=== PATIENT | female | born 1985 | race Caucasian/White ===

== ENCOUNTER 2025-09-05 11:13 | Emergency (ER) | payer OTHER, SELFPAY ==
[2025-09-05 11:15] VITALS: BP 122/80; PULSE 87; RESP 18; TEMP 37.1; O2SAT 94; BMI 47.3
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
--- OUTSIDE RECORDS SUMMARY | 2025-09-05 11:50 | XMS_ITS | Clinical Summary ---
Author Organization [facility] Address [address] [place] [id number] Care Team Providers [employer] Driver Name Role Phone Ning Johns MD Unavailable [phone] Luz Marina Reynolds MD Primary Care Provider Walter Martínez MD Unavailable [phone] Eunice Mccarthy Unavailable [phone] Unavailable Allergies Active Allergy Reactions Criticality Noted Date Comments Azithromycin Rash Low 11/20/2012 Also on sulfa; suspect the sulfa is the most likely culprit Ciprofloxacin Other - Describe In Comment Field 09/08/2024 thoracic aortic aneurysm Sulfa (Sulfonamide Antibiotics) Rash Low 11/20/2012 Was also on zithromax Vancomycin Rash 01/13/2025 Rash upon vanco OR Ancef administration prior to sx; however, no reaction to Ancef when administered post op, so proceed with caution next vanco admin... Medications aspirin chewable 81 mg chewable tablet Chew 81 mg by mouth once daily. Active ascorbic acid (vitamin C) (Vitamin C) 500 mg tablet Take 500 mg by mouth once daily. Active acetaminophen 500 mg tabletIndications :S/P pulmonary valve replacement Take 2 Tablets (1,000 mg) by mouth every 6 hours if needed for Pain. Max acetaminophen dose: 4000mg in 24 hrs. 025 Active magnesium 250 mg tab Take 250 mg by mouth at bedtime. Active Wegovy 1.7 mg/0.75 mL subcutaneous penIndications:Ch ronic right-sided heart failure (HC),Class 3 severe obesity with serious comorbidity and body mass index (BMI) of 45.0 to 49.9 in adult, unspecified obesity type (HC) Inject 1.7 mg subcutaneous once weekly. 3 mL 5 025 Active amoxicillin 500 mg capsuleIndication s:PROPHYLAXIS,Pre vention of Infective Endocarditis because of an existing heart condition Take 4 Capsules (2,000 mg) by mouth one time if needed ( NEEDED 30-60 MINUTES PRIOR TO DENTAL PROCEDURES) for up to 5 doses. 20 Capsule 1 025 Active ondansetron (ZOFRAN ODT) 4 mg disintegrating tabletIndications :Nausea PLACE 1-2 TABLETS ON THE TONGUE EVERY 8 HOURS NEEDED FOR NAUSEA AND VOMITING 30 Tablet 025 Active sertraline (Zoloft) 100 mg tabletIndications :Depression, recurrent Take 1 Tablet (100 mg) by mouth once daily. 30 Tablet 025 Active sertraline (Zoloft) 100 mg tablet Take 100 mg by mouth once daily. 2024 Discontinued(R eorder (E-cancel not sent)) ondansetron (ZOFRAN ODT) 4 mg disintegrating tabletIndications :Nausea Place 1-2 Tablets (4-8 mg) on the tongue every 8 hours if needed for Nausea/Vomiting . 30 Tablet 025 2024 Discontinued Active Problems Patient Care Coordination No te Formatting of this note migh t be different from the original. There is a resolved Delivery Plan of Care which has been moved to a progress note under Case Management tab dated 10/23/22 by Kristina Bang RN. Problem Noted Date Diagnosed Date Postoperative wound infection 01/31/2025 S/P pulmonary valve replacement 01/12/2025 On mechanically assisted ventilation 01/12/2025 H/O pulmonic valve replacement 01/12/2025 Ascending aorta dilatation 12/02/2024 Pulmonary valve stenosis 11/30/2024 Severe pre-eclampsia in third trimester 10/18/19 Request for sterilization 10/18/2022 Breech presentation 10/18/2022 Hx of preeclampsia, prior , currently p regnant 06/26/2022 Obesity affecting in second trimester 06/26/2022 Viral hepatitis C 06/26/2022 Klippel-Feil syndrome 06/26/2022 Anxiety and depression 06/26/2022 [facility] Supervision of high-risk Overview (10/16/2022): [facility] OB PATIENT MPP CVOB CONSULTATION ON 06/07/22, 09/06/22 NEXT VISIT ALERTS: Patient in ER on 10/09 chest pain/HTN - Nifedipine added. 10/13 Nifedipine decreased compass part 2, rescheduled for 37w, 10/27/22 1400 - please give instructions/Hibiclens Serial BNP in the third trimester and with any worsening symptoms - LAST 10/09/22 PLANS & FUTURE APPOINTMENTS: - OB visit through: 10/30/22 TESTING PLAN: weekly at 32 weeks - Testing through: 11/13/22 GROWTH PLAN: - Next Growth: 10/09/22 DELIVERY PLAN: primary with tubal - Scheduled delivery: ANW 10/27/22 1400 - Preferred delivery location: [facility] PRIMARY DIAGNOSES: 36 y.o. 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 AC 34th%. 07/07/22 21w0d EFW 357 grams, percentile: 54 05/10/22 CRL ECHO: 07/07/22 Technically challenging study. Normal segmental cardiac anatomy. Normal biventricular size and function. REFERRING PHYSICIAN/PHONE/LAST UPDATE: MD Emy Beasley [phone] Primary MD approves scheduling of recommended ultrasounds/testing: Yes SPECIALISTS/CONSULTS: Include: Specialty MD Clinic Name Phone# [place] and ADDED TO PATIENT CARE TEAM Yes Cardiology: Dr Ning Johns [facility] [phone] LV: 06/02/20 [place] JORJE Matamoros MD #[phone] LV 12/10/20 No more follow up needed Cardiothoracic Surgeon: Dr Ashley Pak at [facility] [phone]; LV 2019 RYANN signed for [facility]: MATERNAL CARE COORDINATION: Tiara Mazariegos RN, Jeni Short RN, & Ava Borges RN [id number] CARE COORDINATION: HUMAN RESOURCE INTERNSHIP: GENETICS: NIPT Low risk PROCEDURES: 08/28/22 ECHO Final Impressions: Limited Echocardiogram performed 1. Technically limited exam. 2. History of tetralogy of Fallot with pulmonary atresia. S/p shunt x2, complete repair and subsequent pulmonary conduit placement (2000). Abondoned transcatheter pulmonary valve due to coronary compression. S/p surgical pulmonary valve replacement and reconstruction of pulmonary artery(Pasha/Jhony 03/02/20). 3. Mildly increased LV size, normal wall thickness wall thickness, mildly reduced global systolic function with an estimated EF of 50 - 55%. 4. Right ventricular cavity size is mildly enlarged, global systolic RV function is mildly reduced. 5. Bioprosthetic pulmonic valve (25mm Mosaic) with a peak velocity of 3.7m/s, a peak gradient of 54mmHg, and a mean gradient of 29mmHg without significant regurgitation. 6. The aortic sinus is dilated with a maximal diameter of 4.4 cm. 08/28/22 MRA 1. History of surgical repair of tetralogy of Fallot and pulmonic valve replacement. 2. Enlarged aortic sinus with maximum cusp-commissure dimension of 44 mm, maximum cusp-cusp dimension of 45 mm, and area/height ration of 9.4 cm2/m. 3. Enlarged ascending aorta: 42 x 39 mm. 4. Normal left ventricle size and wall thickness with preserved systolic function and mild mid inferior wall hypokinesis. Calculated EF is 53%. 5. Right ventricle exhibits mild cavity enlargement and reduced systolic function. Calculated EF is 42%. 6. Pulmonic valve prosthesis appears well seated without significant stenosis or regurgitation. 7. Compared to prior study on 06/09/22: Aortic sinus size is stable (direct comparison made with new measurements made on prior images). Ascending aorta size is also likely unchanged as prior measurement was not made in true cross-section due to sternal wire artifact (better visualized today). Right ventricular systolic function has decreased (prior RVEF 48%). Mild mid inferior wall hypokinesis was present on direct review of the prior study. ECHO 07/17/22 1. Technically limited exam. 2. LVEF estimate 55-60%. Normal LV size and wall thickness. 3. Moderately dilated RV with mildly reduced global function. 4. Bioprosthetic pulmonic valve [25 mm Mosaic] with moderately increased doppler indices [peak velocity 3.7 m/s and peak gradient 56 mmHg]. 5. Mildly dilated aortic root [4.4 cm]. 6. Normal RA pressure estimate. PERTINENT MEDS: bASA 162 mg Zoloft 50mg increased to 75mg 06/26/22 Toprol stopped 06/23 d/t tinnitus & jaw pain Lopressor 25mg BID ROUTINE OB: Flu vaccine given: 07/07/22 COVID-19 vaccine: Date(s) given: 09/22/21, 10/20/21 - Declines Booster Tdap vaccine: GIVE BETWEEN 27 AND 36 WEEKS Date given: 09/18/22 COMPASS: Initial completed YES Part 2 between 32w-36w completed YES NO ANXIETY/DEPRESSION SCREEN: Initial screen: Date: 06/26/22 GA: 19w3d PHQ-9 score: 7 PREMA-7 score: 2 24wk screen: Date: 08/21/22 GA: 27w3d PHQ-9 score: 3 PREMA-7 score:2 Previous history of anxiety or depression? YES. Pt saw Daria at [facility], 2020. Dr. Reynolds (primary) prescribes her zoloft ROUTINE LABS: Blood type: O Positive Antibody screen: Negative Last pap: 09/22/21 NILM HPV negative Gestational Diabetes screening: PLAN SCREEN @ 28wks 09/18/22 __133__ Treponema Pallidum: DRAW @ 28 WEEKS Date drawn: 09/18/22 _negative__ GBS: Hemoglobin: Initial 05/29/22 13.1 31w3d 09/18/22 _10.8___ 36 wk ADDITIONAL PERTINENT LABS: BNP: 06/09/22 55; 07/07/22 37; 08/28/22 30 Preeclampsia Labs: 06/26/22 WNL 05/11/22 HCV RNA not detected PPTL& DELIVERY SCHEDULING: CHECKLIST FOR SCHEDULING PROCEDURES: Garcia: Call [phone] [employer]: Call (cnmt) for all scheduling Procedure: C/ and PPTL Hospital: [facility] Unit: L&D Date & Time of procedure: 10/27/21 1400 Pertinent information: HTN, CVOB, Gestational age on procedure date? 37w0d MD doing procedure: JV Date scheduled: rescheduled 10/13/22 Scheduling MD & RN: LB/EN Notifications: Hospitalist Delivery-OBH high school home economics teacher notified through [employer] inbox? Yes [facility] MD high school home economics teacher notified via [employer] inbox? Yes Primary MD notified via [employer] inbox? Yes Primary MD clinic called if not [facility]? Yes On [facility] calendar? Yes Care Coordination notified? Yes H&P/PPTL: PPTL permit signed? Not Applicable H&P and Plan in chart? [facility] appointment made for H&P with PLATEMAN within 30 days of procedure? Yes Date: *Has patient tested positive in the past 90 days? If so when? Regardless of vaccination status, all procedures require a COVID-19 test . Patients should be scheduled for a COVID-19 test within 3-5 days prior to the scheduled procedure to be done in main [facility] Clinic Date: Hibiclens Education given? No Hibiclens supplied to patient? No Patient notification: Patient notified of procedure date? No Written admission instructions given to patient via AVS? No Do COVID testing with in 3-5 days of scheduled delivery @ a main [facility] site H&P needed 30 days before delivery Date: PPTL: Yes Is Medical assistance? No PLAN OF CARE: 10/13/22 per [facility] OB Care - OB checks every 2 weeks from 28-36 weeks, then weekly until delivery. - Low threshold to increase frequency of OB visits either virtually or in person - labor precautions reviewed - Call if regular contractions, leaking of fluid, vaginal bleeding, or decreased movement - Okay to continue regular physical activity - Home blood pressure checks 2-3 times a day - she will continue to monitor vaginal discharge Cardiac: - Goal blood pressure <140/90. - Met with CVOB 06/07, repeat in third trimester (scheduled 08/28). - Cardiac MRA 06/09 repeat done 08/28. - Maternal echocardiogram LVEF 55-60% (06/09). Repeat scheduled 10/17/22 - BNP 53 (06/09), 37 (07/07). Serial BNP third trimester. - Stopped Toprol d/t jaw pain and tinnitus. Now taking lopressor 25mg twice daily (eRx 07/[address] Aguilar). Ultrasound/Testing - Targeted ultrasound/L2 EFW 54% (07/07) - echocardiogram with pediatric cardiology wnl 07/07 - Growth ultrasound - scheduled for next week - BPP/NST weekly Labs - labs done with Primary OB - Baseline preeclampsia labs: Platelets, creatinine 0.80, AST 13, and urine PCR done 07/07 due to hx of preeclampsia. - GCT passed - GBS & Hgb at 36w - COVID-19 screening - per policy pre-procedural - BNP 36, pro BNP 135 10/09/22 - magnesium low 1.4 - will either want to increase Magnesium oxide to twice daily or try better absorbing Magnesium glycinate Meds - vitamin - Vitamin D3 - Zoloft 75mg daily (increased on 06/26, consider increase to 100mg if needed prn) - ASA 162mg daily - Toprol- stopped 06/23 d/t tinnitus & jaw pain - Continues lopressor 25mg twice daily (07/07/22) - Nifedipine XL 30 mg twice daily (added 10/09/22) - will reduce to daily. If she continues to have side effects can discontinue and start hydralazine 25 mg three times daily. This was reviewed with Dr Temple today in clinic. - Magnesium 400 mg to twice daily - Tdap completed - Influenza vaccine 07/07/22 - COVID-19 vaccine (Moderna) 09/22/21, 10/20/21. Considering booster. Screening - Met with [facility] 05/05, NIPS low risk - PHQ-9 score 7/PREMA Score 2 (06/26) - Sleep Apnea: Consult placed Consults - CVOB 06/07. Repeat third trimester. - Genetic Counseling 05/05 - Maternal care coordinators involved - Weight management referral: offer at future visit - Sleep medicine referral placed (06/26) Delivery - Has CVOB care plan in place - last visit with Dr Lou and Dr Aguilar 09/06 - Plans primary section (elective and cardiac) -moved up delivery to 37w0d gestation at [facility] MBC - due to gestational hypertension - 10/27/22 with OB - Timing of delivery: 37 weeks - Tubal sterilization: desires sterilization, has private insurance (no need to sign federal consent) - anesthesia per patient and provider preferenece - No indication for telemetry - She has an indication for sbe prophylaxis - follow BNP - Keep BP <140/90 - no restriction on fluids High risk , antepartum 05/08/2022 Overview (05/08/2022): Gestational age at time of intake: 12w 3d Preferred name: Marie, 36 y.o. Partners name: Albaro LMP: 02/10/22, Blood Type: O Rh Positive Dating and viability ultrasound: 03/31/22 @ 6w 2d Concerns this : no Medical Hx: High risk pregnancies, Congenital heart defect-Tetrology of Wlfhuw-Gqvcxib-tixvakso, GBS carrier, History of preeclampsia, Anxiety and Depression, AMA, BMI: 43.6 >30 recommended weight gain 11-20# Hx of thyroid disorder: no. HSV: no, ASA indicated-High Risk for preeclampsia: yes, patient is taking Low dose ASA Hx of preeclampsia: yes, Early GTT indicated: yes If yes: BMI > 40 Genetic Screening: yes Level 2 FAS indicated (pre-preg BMI>30): yes OB Hx: OB History Para Term AB Living 5 3 3 0 1 3 SAB IAB Ectopic Multiple Live Births 1 0 0 0 3 # Outcome Date GA Lbr Simon/2nd Weight Sex Delivery Anes PTL Lv 5 Current 4 SAB 07/25/21 10w5d D&C 3 Term 05/01/11 39w5d M Vag EPIDURAL N [place] 2 Term 11/30/07 40w0d 18:00 2.99 kg (6 lb 9.6 oz) M Vag EPIDURAL [place] Complications: Oligohydramnios 1 Term 10/15/04 40w0d 12:00 2.78 kg (6 lb 2 oz) F VAGINAL RAY[place]D EPIDURAL N [place] Comments: pre-eclampsia. Placed baby for adoption Complications: Chorioamnionitis Smoker: no Domestic violence screen: negative Flu Vaccine: has not received COVID Vaccine: completed COVID-19 BOOSTER: has not received Chronic right-sided heart failure 07/22/2021 Supraventricular tachycardia 07/22/2021 S/P pulmonary valve replacement 03/08/2020 Pulmonary valve insufficiency 03/05/2020 S/P right ventricle to pulmonary artery (RV-PA) conduit 08/12/2019 Atypical squamous cells lakisha ot exclude high grade squamous intraepithelial lesion on cytologic smear of cervix (ASC-H) 07/17/2016 Overview (02/27/2020): 07/17/16 ASC-H. 08/29/16 Stearns= BALTAZAR 1. 1 yr Dx pap due 08/201708/16/17 NIL, Neg HPV. Plan 1 yr co-test 09/06/18 Patient is lost to pap tracking follow-up. 09/23/18 NIL pap, neg HPV. Plan: 3 yr co-test TETRALOGY OF FALLOT, repaired in childhood. 06/02 Pap smear for cervical cancer screening Overview (10/24/2021): 08/2021 NIL/HPV negative. Plan: Pap/HPV due 08/2026 Maternal cardiovascular dise ase affecting in second trimester Maternal cardiovascular dise ase affecting in third trimester Obesity affecting in third trimester hypertension Resolved Problems Problem Noted Date Diagnosed Date Resolved Date Cardiogenic shock 07/12/2022 10/13/2022 Migraine with aura 06/26/2022 3 Missed 07/25/2021 10/13/2022 [facility] Consult 06/23/2021 022 Overview (06/01/2022): [facility] CONSULTATION ON 06/27/21 with SA RONALD 07/18/2021 to [facility] NEXT VISIT ALERTS: Ava helping coordinate ECHO, cardiology appointment and Sleep study Needs early glucose screening due to BMI, labs, cultures, PHQ-9, Compass, Flu shot Considering COVID-19 vaccine after 12 weeks. PLANS & FUTURE APPOINTMENTS: - OB visits: Through 07/18/2021 TESTING PLAN: - Testing: Through GROWTH PLAN: - Growth: Next DELIVERY PLAN: - Scheduled delivery: - Preferred delivery location: [place] PRIMARY DIAGNOSIS: 35 y.o. 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 Hx of blood transfusion - 1984 Hep C + - treated No more follow up needed LAST GROWTH: 06/27/21 7w5d The nuchal translucency measurement is within the normal range. ECHO: IF IUGR <10% or EFW <2000 grams: Add IUGRPCOM REFERRING PHYSICIAN/PHONE/LAST UPDATE: Dr Luz Marina Reynolds at [facility] [phone] Primary MD approves scheduling of recommended ultrasounds/testing: SPECIALISTS/CONSULTS: Cardiology: Dr Ning Johns [facility] [phone] LV: 06/02/20 (Patient planning to contact) Dr. Johns leaving practice. CC to coordinate cardiology appointment. MAHI Matamoros MD #[phone] LV 12/10/20 No more follow up needed Cardiothoracic Surgeon: Dr Ashley Pak at [facility] [phone]; LV 2019 Include: Specialty MD Clinic Name Phone# [place] and ADDED TO PATIENT CARE TEAM CARE COORDINATION: Ava Borges RN 06/27/21 [employer] INTERNSHIP: RYANN signed for [facility]: GENETICS: Scheduled for 06/27/21 Saima Dunlap PROCEDURES: Echo 06/02/20: EKG 06/02/20: PERTINENT MEDS: bASA HCTZ-stopped when found out . Was told to restart at Consult 06/27/21 Zoloft-stopped when found out . Was told to restart at 12 weeks by SA ROUTINE OB: Flu vaccine: Date given: COVID-19 vaccine: Date(s) given: Considering Tdap vaccine: GIVE BETWEEN 27 AND 36 WEEKS Date given: COMPASS: Initial completed YES NO Part 2 between 32w-36w completed YES NO ANXIETY/DEPRESSION SCREEN: Initial screen: Date: GA: PHQ-9 score: PREMA-7 score: 24 week screen: Date : GA: PHQ-9 score: PREMA-7 score: Previous history of anxiety or depression ? YES Stopped Zoloft 06/21 when found out she was . Sees a therapist ROUTINE LABS: Blood type: Antibody screen: Rhogam needed? YES NO Last pap: 09/23/18 Negative for intraepithelial lesion or malignancy HPV- negative Plan for Gestational Diabetes screening: PLAN SCREEN @ for Treponema Pallidum: DRAW @ 28 WEEKS Date drawn: GBS: Hemoglobin: Initial 28 wk 36 wk ADDITIONAL PERTINENT LABS: Labs reviewed? No Normal? not drawn yet. PPTL& DELIVERY SCHEDULING: Do COVID testing with in 3-5 days of scheduled delivery @ a main [facility] site H&P needed 30 days before delivery Date: PPTL: Yes No Is Medical assistance? 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 10/13/2022 Sprain of symphysis pubis 11/16/2010 Pelvic pressure in 11/02/2010 06/29/2011 Oligohydramnios, delivered 12/02/2007 0 01/03/2011 Carrier or suspected carrier of group B Streptococcus 11/25/2007 01/03/2011 Edema 11/01/2007 01/03/2011 Cough 07/02/2007 01/03/2011 Incomplete miscarriage 10/13 Encounters Date Type Department Care Team Description 08/21/2025 Telephone [facility] [address] [place] [address] Luz Marina Reynolds MD Refill Request (Sertraline) 08/21/2025 Refill [facility] [address] [place] [address] Eunice Mccarthy PA Refill Request (Ondansetron) 07/29/2025 Telephone [facility] [place] [id number] [facility] [address] [place] [id number] Denise Mcdonald MD Questions 07/21/2025 10:34 AM CDT - 07/21/2025 11:59 PM CDT Hospital Encounter [facility] [address] [place] [address] Denise Mcdonald MD S/P pulmonary valve replacement 07/21/2025 Travel 06/19/2025 11:30 AM CDT Telemedicine [address] [address] Eunice Mccarthy PA Telehealth (No vitals taken); Weight ([facility] follow up) 06/19/2025 Travel from Last 3 Months Immunizations Immunization Administration Dates Next Due COVID-19 vaccine (Moderna 10 0mcg/0.5mL) PF, MDV 10/20/2021,09/22/2021 COVID-19 vaccine (Moderna 50 mcg/0.5mL) 12YO+ BIVALENT PF, MDV 03/08/2023 Influenza, IIV3 (Age >=3 years) 07/02/2014,08/01 Influenza, IIV4 07/07/2022,08/25/2019,08/16/2017 Influenza, IIV4 (=>6mos) MDV 07/01/2015 Td, Preservative Free (age >= 7 Years) 9 Tdap 09/18/2022,09/22/2021,11/30/2007 Family History Medical History Relation Name Comments Cancer-pancreatic Father Good Health Mother Alzheimer's disease Paternal Grandfather Cancer-prostate Paternal Grandfather No Known Problems Son 1 Peter No Known Problems Son 2 Don No Known Problems Son 3 Loíza Anesthesia Problem No Family History Blood Disease No Family History Clotting disorder No Family History Relation Name Status Comments Father Maternal Grandfather Maternal Grandmother Mother Alive Paternal Grandfather Paternal Grandmother Son 1 Peter Alive Son 2 Don Alive Son 3 Loíza Alive Social History Tobacco Use Types Packs/Day Years Used Date Smoking Tobacco: Former Cigarettes 0.2 1 0 01/18/2006 - 01/18/2007 Passive Smoke Exposure: Never Smokeless Tobacco: Never Tobacco Cessation:Counseling Given: Not Answered Comments:social smoking during high school Alcohol Use Standard Drinks/Week Comments Yes 0 (1 standard drink = 0.6 oz pur e alcohol) occ PHQ-2 Answer Date Recorded PHQ-2 TOTAL SCORE 2 06/05/2024 Social Connections Answer Date Recorded Do you often feel lonely or isolated from those around you? 0 01/31/2025 Financial Resource Strain Answer Date R ecorded Difficulty of Paying Living Expenses 3 12/29/2024 Difficulty of Paying Living Expenses Not on file 12/29/2024 Food Insecurity Answer Date Recorded Do you worry your food will run out before you are able to buy more? 1 01/31/2025 Transportation Needs Answer Date Record ed Does lack of transportation keep you from medica l appointments? 1 01/31/2025 Does lack of transportation keep you from work, meetings or getting things that you need? 1 01/31/2025 Housing Stability Answer Date Recorded What is your housing situation today? 1 01/31/2025 Interpersonal Safety Answer Date Record ed Are you being hit, kicked, p ushed or yelled at (see row info)? No 01/31/2025 Interpersonal Safety Abuse 12 - 18 Not on file 01/31/2025 Interpersonal Safety Ambulatory Vulnerability No t on file 01/31/2025 Utilities Answer Date Recorded Do you have trouble paying f or utilities (for example, heat, electricity, water, phone)? 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 Placed baby for adoption 2007 Term 40w 0d 18h 00m/ 2.99 kg (6 lb 9.6 oz) M Vag Epidur al Livin g Peter ansari Complications:Oligohydramnio s Delivery Location:[place] 2010 Term 39w 5d M Vag Epidur al N Livin g Jose Complications:None Delivery Location:[place] 2020 SAB 10w 5d D&C 2022 35w 5d 0h 01m 0h 01m 2.26 kg (4 lb 15.7 oz) M C-Sect ion, B Epidur al Livin g 8 8 Gonzalo herzog, Itzel Boothe MD Complications:None Delivery Location:Hospital ( [address]) Last Filed Vital Signs Vital Sign Reading Time Taken Comments Blood Pressure 136/84 03/09/2025 2:50 PM CDT Pulse 77 03/09/2025 2:50 PM CDT Temperature 36.6 C (97.9 F) 02/02/2025 8:58 AM CDT Respiratory Rate 16 02/02/2025 8:58 AM CDT Oxygen Saturation 95% 03/09/2025 2:50 PM CDT Inhaled Oxygen Concentration - - Weight 117.2 kg (258 lb 6.4 oz) 025 11:00 AM CDT Height 157.5 cm (5' 2.01) 06/19/2025 1 1:00 AM CDT Body Mass Index 47.25 06/19/2025 11:00 AM CDT Plan of Treatment Health Maintenance Due Date Last Done Comments Hepatitis B series for 19+ ( 1 of 3 - 19+ 3-dose series) 2004 Pneumococcal series for age 6-49 (1 of 2 - PCV) 2004 HPV series for age 9-45 (2 - 3-dose series) 07/12/2010 06/14/2010 (Declined) COVID-19 vaccine series (4 - 2025- season) 2025 03/08/2023, 10/20/2021, 09/22/2021 Influenza Vaccine (#1) 2025 , 08/25/2019, 08/16/2017, Additional history exists Depression screening for age 12+ 06/05/2025 06/05/2024, 03/08/2023, 11/09/2022, Additional history exists BMI (ht and wt on same day) for age 18+ 06/19/2026 06/19/2025, 05/29/2025, 04/13/2025, Additional history exists Pap test for age 21-65 09/22/2026 , 09/22/2021, 06/20/2011, Additional history exists Tetanus booster 09/18/2032 09/18/2022, 09/01, 08/25/2019, Additional history exists RSV vaccine for adults or (1 - 1-dose 75+ series) 2060 Hepatitis C screening for ag e 18-79 Completed 05/11/2022, 05/11/2022, 03/02/2020, Additional history exists HIV for age 15-65 Completed 03/08/2023, , 03/02/2020, Additional history exists Medical Devices Implanted Type Area Pressure Tester Device Identifier Shelf Expiration Date Model / Serial / Lot Graft Vasc 8mm 30cmmm Hemashield Gold Stra - [id number] Implanted:Qty: 1 on 03/02/2020 by Ashley Pak MD at [facility] Grafts Right: Chest [employer] 09/30/2024 [id number] / [id number] Description:For Right Axilla ry Cannulation Graft Vasc 8mm 30cm Hemashield Gold Stra - [id number] Implanted:Qty: 1 on 01/12/2025 by Franklyn Allen MD at [facility] Grafts N/A: Aorta [employer] 07/31/2029 [id number] / [id number] Description:Ascending aorta- Getinge, Hemashield Gold, 8mm x 30cm; Lot Number 24L20; Serial Number [id number]; Reference Number [id number]; Expiration Date 07/31/2029; Implanted to the ascending aorta (attached the new pulmonary valve and the existing ascending aorta conduit together) on 01/12/[address] Allen Screw Sternal 2.4x16mm Sternalock [employer] - [id number] Implanted:Qty: 7 on 03/02/2020 by Ashley Pak MD at [facility] N/A: Sternum Barby [employer]omet [id number]# / / An Hh [id number] Implanted:Qty: 1 on 03/02/2020 by Ashley Pak MD at [facility] Explanted:at [facility] (Quantity not on file) N/A: Pulmonary Valve Medtronic Cardiac Surgery 01/30/2023 [id number]# / [id number] / Graft Vasc [id number] Vascutek Gelweave Stra - [id number] Implanted:Qty: 1 on 03/02/2020 by Ashley Pak MD at [facility] N/A: Pulmonary Valve SHEEX 03/30/2022 [id number] / [id number] / [id number] Plate Sternal Wide Ladder 12h Sternalock - [id number] Implanted:Qty: 1 on 03/02/2020 by Ashley Pak MD at [facility] N/A: Sternum [employer]by [employer] [id number]# / / Screw Sternal 2.4x14mm Sternalock [employer] - [id number] Implanted:Qty: 22 on 03/02/2020 by Ashley Pak MD at [facility] N/A: Sternum [employer]by [employer] [id number]# / / Screw Sternal 2.7x16mm Sternalock [employer] - [id number] Implanted:Qty: 2 on 03/02/2020 by Ashley Pak MD at [facility] N/A: Sternum [employer]by [employer] [id number]# / / Plate Sternal L 4 Hole 100deg Sternalock - [id number] Implanted:Qty: 1 on 03/02/2020 by Ashley Pak MD at [facility] N/A: Sternum [employer]by [employer] [id number]# / / Plate Sternal Jl 8 Hole Sternalock - [id number] Implanted:Qty: 1 on 03/02/2020 by Ashley Pak MD at [facility] N/A: Sternum [employer]by [employer] [id number]# / / Plate Sternal X 8 Hole Sternalock - [id number] Implanted:Qty: 1 on 03/02/2020 by Ashley Pak MD at [facility] N/A: Sternum [employer]by [employer] [id number]# / / Valve Mitral 25mm Mosaic Tissue - [id number] Implanted:Qty: 1 on 01/12/2025 by Franklyn Allen MD at [facility] N/A: Pulmonary Valve Medtronic Cardiac Surgery [id number] 04/30/2028 [id number] / [id number] / Description:Pulmonary Valve- Medtronic Mosaic 310 Cinch, 25mm; Serial Number [id number]; Reference Number [id number]; Expiration Date 04/30/2028; Implanted to the pulmonary valve on 01/12/[address] Allen Procedures Procedure Name Priority Date/Time Associated Diagnosis Comments MR CARDIAC AND MR ANGIO CHEST COMPLETE WO Routine 07/21/2025 2:12 PM CDT S/P pulmonary valve replacement STRESS TEST CARDIOPULMONARY EXERCISE Routine 07/21/2025 11:01 AM CDT S/P pulmonary valve replacement LC HIV-1/O/2, 4TH GENERATION Routine 03/08/2023 9:31 AM CDT Forgetfulness Fatigue, unspecified type ANTI HCV Routine 05/11/2022 3:15 PM CDT High risk , antepartum (HC) HPV HIGH RISK Routine 09/22/2021 10:21 AM POWER BARKER Pap smear for cervical cancer screening from Last 3 Months or Most Recently Relevant to Health Maintenance Results * MR CARDIAC AND MR ANGIO CHEST COMPLETE WO (07/21/2025 2:12 PM CDT) Anatomical Region Laterality Modality Magnetic Resonan ce 07/21/2025 1:16 PM CDT Narrative 07/21/2025 3:00 PM CDT [facility] at [facility] CMR Report Name: MARIE MOSER : Scan Date: Accession Number: [id number] Status: Final Electronically signed by Jesús Cross 15:00:46 VITALS ===== HEIGHT: 62 in (157 cm) WEIGHT: 258 lbs (117 kgs) BSA: 2.13 m^2 FINAL IMPRESSION ===== 1. History of surgical repair of tetralogy of Fallot and pulmonic valve replacement. 2. The aortic root is moderately enlarged, 4.9 x 4.8 x 4.4 cm (cusp-cusp); the aortic root area/height is 9.9 cm2/m. Remeasuring the prior MRA from 08/28/2022 using the same technique yielded similar measures of 4.9 x 4.7 x 4.3 cm (cusp-cusp) and 9.9 cm2/m. 3. Enlarged ascending aorta: 4.1 cm x 3.9 cm (previously 4.2 x 3.9 cm on prior CMR from 08/28/2022). 4. Quantitative LVEF 59 %. LV systolic function is normal. LV cavity size is normal. LV wall thickness is normal. 5. Quantitative RVEF 45 %. RV systolic function is mildly decreased globally. RV cavity size is normal. RVEF 42% on prior CMR from 08/28/2022. 6. 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 There is trivial pulmonic regurgitation. Pulmonic regurgitant volume 2 ml. There is no obvious pulmonic stenosis. 7. No aortic coarctation or dissection. Left sided aortic arch with normal brachiocephalic branch pattern. 8. The ratio of pulmonary to systemic flow is 1.06; no evidence for hemodynamically significant shunting. SUMMARY ===== LEFT VENTRICLE: Quantitative LVEF 59 %. LV systolic function is normal. LV cavity size is normal. LV wall thickness is normal. RIGHT VENTRICLE: Quantitative RVEF 45 %. RV systolic function is mildly decreased globally. RV cavity size is normal. RVEF 42% on prior CMR from 08/28/2022. PERICARDIUM: There is no pericardial effusion. PLEURAL EFFUSION: There is no pleural effusion. AORTIC VALVE: Aortic valve is trileaflet. There is no aortic stenosis. There is trivial aortic regurgitation. Aortic regurgitant volume 6 ml. MITRAL VALVE: Mitral valve leaflets are normal. There is no mitral regurgitation. TRICUSPID VALVE: Tricuspid valve leaflets are normal. There is no tricuspid regurgitation. 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 There is trivial pulmonic regurgitation. Pulmonic regurgitant volume 2 ml. There is no obvious pulmonic stenosis. AORTIC ROOT: The aortic root is moderately enlarged, 4.9 x 4.8 x 4.4 cm (cusp- cusp); the aortic root area/height is 9.9 cm2/m. Enlarged ascending aorta: 4.1 cm x 3.9 cm. OTHER FINDINGS: -The ratio of pulmonary to systemic flow is 1.06; no evidence for hemodynamically significant shunting. -No aortic coarctation or dissection. Left sided aortic arch with normal brachiocephalic branch pattern. CORE EXAM ===== MEASUREMENTS ----- --- VOLUMETRIC ANALYSIS . . LV Reference RV Reference +-----+--------+-----+ +-----+ + EDV ml 148 (94-175) 173 (94-178) ml/m^2 69 (62-96) 81 (61-98) ESV ml 61 (27-64) 96 (25-77) ml/m^2 29 (17-36) 45 (17-43) CO SV ml 87 (61-117) 77 (59-111) ml/m^2 41 (40-65) 36 (38-62 EF % 59 (98-21) 45 (88-75) '-----+--------+-----+ +-----+ ' SCAN INFO ===== GENERAL ----- --- SCANNER INSPECTOR AUTOMATIC TYPEWRITER: [id number] MODEL: MAGNETOM Aera SETUP REFERRING PHYSICIAN: DENISE MCDONALD ATTENDING PHYSICIAN: DENISE ROD ===== Patient Account [id number] ICD10 Codes Z95.2 Report generated by [employer], a product of [employer] Procedure Note Jesús Cross MD - 07/21/2025 Formerly Named [facility] CMR Report Name: MARIE MOSER : Scan Date: Accession Number: [id number] Status: Final Electronically signed by Jesús Cross 15:00:46 VITALS ===== HEIGHT: 62 in (157 cm) WEIGHT: 258 lbs (117 kgs) BSA: 2.13 m^2 FINAL IMPRESSION ===== 1. History of surgical repair of tetralogy of Fallot and pulmonic valvereplacement. 2. The aortic root is moderately enlarged, 4.9 x 4.8 x 4.4 cm (cusp-cusp);the aortic root area/height is 9.9 cm2/m. Remeasuring the prior MRA from 08/28/2022 using the sametechnique yielded similar measures of 4.9 x 4.7 x 4.3 cm (cusp-cusp) and 9.9 cm2/m. 3. Enlarged ascending aorta: 4.1 cm x 3.9 cm (previously 4.2 x 3.9 cm onprior CMR from 08/28/2022). 4. Quantitative LVEF 59 %. LV systolic function is normal. LV cavity sizeis normal. LV wall thickness is normal. 5. Quantitative RVEF 45 %. RV systolic function is mildly decreasedglobally. RV cavity size is normal. RVEF 42% on prior CMR from 08/28/2022. 6. 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 There istrivial pulmonic regurgitation. Pulmonic regurgitant volume 2 ml. There is no obvious pulmonic stenosis. 7. No aortic coarctation or dissection. Left sided aortic arch withnormal brachiocephalic branch pattern. 8. The ratio of pulmonary to systemic flow is 1.06; no evidence forhemodynamically significant shunting. SUMMARY ===== LEFT VENTRICLE: Quantitative LVEF 59 %. LV systolic function is normal. LVcavity size is normal. LV wall thickness is normal. RIGHT VENTRICLE: Quantitative RVEF 45 %. RV systolic function is mildlydecreased globally. RV cavity size is normal. RVEF 42% on prior CMR from 08/28/2022. PERICARDIUM: There is no pericardial effusion. PLEURAL EFFUSION: There is no pleural effusion. AORTIC VALVE: Aortic valve is trileaflet. There is no aortic stenosis.There is trivial aortic regurgitation. Aortic regurgitant volume 6 ml. MITRAL VALVE: Mitral valve leaflets are normal. There is no mitralregurgitation. TRICUSPID VALVE: Tricuspid valve leaflets are normal. There is notricuspid regurgitation. 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 Pulmonic regurgitant volume 2 ml. There is no obvious pulmonic stenosis. AORTIC ROOT: The aortic root is moderately enlarged, 4.9 x 4.8 x 4.4 cm(cusp- cusp); the aortic root area/height is 9.9 cm2/m. Enlarged ascending aorta: 4.1 cm x 3.9 cm. OTHER FINDINGS: -The ratio of pulmonary to systemic flow is 1.06; noevidence for hemodynamically significant shunting. -No aortic coarctation or dissection. Left sided aortic arch with normalbrachiocephalic branch pattern. CORE EXAM ===== MEASUREMENTS ----- --- VOLUMETRIC ANALYSIS . . LV Reference RV Reference +-----+--------+-----+ +-----+ + EDV ml 148 (94-175) 173 (94-178) ml/m^2 69 (62-96) 81 (61-98) ESV ml 61 (27-64) 96 (25-77) ml/m^2 29 (17-36) 45 (17-43) CO SV ml 87 (61-117) 77 (59-111) ml/m^2 41 (40-65) 36 (38-62) EF % 59 (57-75) 45 (51-75) '-----+--------+-----+ +-----+ ' SCAN INFO ===== GENERAL ----- --- SCANNER INSPECTOR AUTOMATIC TYPEWRITER: [id number] MODEL: MAGNETOM Aera SETUP REFERRING PHYSICIAN: DENISE MCDONALD ATTENDING PHYSICIAN: DENISE ROD ===== Patient Account [id number] ICD10 Codes Z95.2 Report generated by [employer], a product of [employer] us Denise Mcdonald MD MR Final Result * STRESS TEST CARDIOPULMONARY EXERCISE (07/21/2025 11:01 AM CDT) Anatomical Region Laterality Modality Ultrasound Narrative 07/22/2025 8:35 AM CDT Table formatting from the original result was not included. Images from the original result were not included. [facility] Cardiovascular Diagnostic Services [address] [place] [address] Formerly Named [facility] at [facility] Cardiopulmonary Exercise Stress Test Name: Marie Moser Sex: female : 1985 Age: 39 y.o. Location: [facility] Exam Date: 07/21/2025 Referring: Denise Mcdonald MD Reason for test: Longitudinal evaluation of adult congenital heart disease, S/P pulmonary valve replacement Protocol: Treadmill/Mod. Desmond Exercise Time: 8:00 Pertinent Medications: None Baseline Peak % of Pred. Max HR Heart Rate 87 150 83.4% Blood Pressure 122/80 180/80 Double Product 27,180 Reason for Stopping Test: SOB Final Impression: Minimally inadequate exercise effort for assessment of myocardial ischemia. At the achieved heart rates no ischemic ECG changes noted. Adequate exercise effort for assessment of peak oxygen consumption with an RER of 1.12. Oxygen uptake efficiency slope was normal at 2387. The peak oxygen consumption at the conclusion of exercise was 14.3 mL/kg/min (79% of the age, sex, and body weight predicted maximum VO2). There was oxygen desaturation to 89% on room air. Breathing reserve remained normal at 39.3%. The ventilatory efficiency was normal with a VE/VCO2 ratio of 24 at the peak VO2. The peak O2 pulse was minimally reduced at 11 mL/beat. The VO2 to workload relationship was linear. There was no exercise oscillatory ventilation. The end-tidal CO2 response to exercise was normal. Interpretation: Following the collection of baseline electrocardiographic and cardiopulmonary data, the patient underwent graded exercise on the treadmill according to the modified Desmond protocol. The resting heart rate was 87 beats per minute, resting blood pressure was 122/80 mmHg. The patient exercised for a total of 8 minutes, stopping due to shortness of breath. Achieved a maximum heart rate of 150 beats per minute (83.4% of the age-predicted maximum heart rate) and a maximum blood pressure of 180/80 mmHg, yielding a rate pressure product of 27,180. Heart rate recovery at 1 minute was abnormal at 9 beats per minute. Resting maximum voluntary ventilation calculation was moderately reduced at 71 L (71% predicted). Oxygen uptake efficiency slope was normal at 2387. Resting electrocardiogram demonstrates sinus rhythm with right bundle branch block morphology QRS and right ventricular hypertrophy with associated repolarization abnormality. With graded exercise, there are no ischemic changes noted and no sustained dysrhythmias. Resting cardiopulmonary data is notable for a resting VO2 of 2.8 mL/kg/min. The resting room air saturation is 97%. The minute ventilation is 10.9 L/min with a respiratory rate of 20. The anaerobic threshold could not be accurately determined from the supplied data. The peak oxygen consumption at the conclusion of exercise was 14.3 mL/kg/min (79% of the age, sex, and body weight predicted maximum VO2). This was achieved with an adequate respiratory exchange ratio of 1.12. There was oxygen desaturation to 89% on room air. Breathing reserve remained normal at 39.3%. The ventilatory efficiency was normal with a VE/VCO2 ratio of 24 at the peak VO2. The peak O2 pulse was minimally reduced at 11 mL/beat. The VO2 to workload relationship was linear. There was no exercise oscillatory ventilation. The end-tidal CO2 response to exercise was normal. [facility] 2017, [phone] Richie Daniels MD MAS/car us Denise Mcdonald MD CARDIAC SERVICES ORD Final Result * LC HIV-1/O/2, 4TH GENERATION (03/08/2023 9:31 AM CDT) HIV Scr 4th Gen Non Reactive Non Reactive 03/10/2023 11:09 AM CDT [facility] ([facility]) Comment: HIV Negative HIV-1/HIV-2 antibodies and HIV-1 p24 antigen were NOT detected. There is no laboratory evidence of HIV infection. Blood BLOOD SPECIMEN / Unknown Venipuncture / Unknown 03/08/2023 9:31 AM CDT 03/08/2023 9:31 AM CDT Narrative [facility] ([facility]) - 03/10/2023 11:09 AM CDT Performed at: [address] [place] [address] [place] [id number] Supervisor Screen Printing: Bill Hussein MD, Phone: [phone] us Luz Marina Reynolds MD LABORATORY Final R esult Performing Organization Address City/[facility]/ZIP Co de Phone Number [facility] ([facility]) [address] [place] [id number], * (ABNORMAL) ANTI HCV (05/11/2022 3:15 PM CDT) Pathologist [facility] HEPATITIS C ANTIBODY Reactive, Preliminary Positive(A) Non-React mau 05/12/2022 7:46 AM CDT [facility] Comment:Presumptive evidence of antibodies to HCV. Reflexed to HCV RNA Quant (See separate report). Blood BLOOD SPECIMEN / Unknown Venipuncture / Unknown 05/11/2022 3:15 PM CDT 05/11/2022 3:15 PM CDT us Walter Martínez MD SEND OUTS Final Result [facility] [address] [place] [address], [place] * HPV HIGH RISK (09/22/2021 10:21 AM POWER BARKER) TYPE 16 Negative Negative 09/26/2021 12:16 PM POWER BARKER [facility] TYPE 18 Negative Negative 09/26/2021 12:16 PM POWER BARKER [facility] TR[facility] LABORATORY OTHER HIGH RISK TYPES Negative Negative 09/26/2021 12:16 PM POWER BARKER [facility] TR[facility] LAB[facility]ORY Other (Cervical) Non-Blood / Unknown 09/22/2021 10:21 AM POWER BARKER 09/23/2021 9:17 AM POWER BARKER Narrative [facility] - 09/26/2021 12:16 PM POWER BARKER HPV types 16, 18, 31, 33, 35, 39, 45, 51, 52, 56, 58, 59, 66 and 68 DNA were undetectable or below the pre-set threshold. Methodology: Yasmin Christina 4800 HPV Test us Luz Marina Reynolds MD MICROBIOLOGY Final R esult [facility] [address] [place] [address], from Last 3 Months or Most Recently Relevant to Health Maintenance Insurance HP HP MAHI ESTRELLA [id number] Advance Directives * Full Code (Latest Code Status on File) Date Activated Date Inactivated Comments 01/31/2025 12:43 PM 02/02/2025 2:17 PM Question Answer Comments Code Status Discussion: Reviewed Preferences * Full Code Date Activated Date Inactivated Comments 01/12/2025 6:26 AM 01/16/2025 2:28 PM Question Answer Comments Code Status Discussion: Unable to Assess Preferences, Provider to review later * Full Code Date Activated Date Inactivated Comments 10/16/2022 4:31 PM 10/23/2022 3:40 PM Question Answer Comments Code Status Discussion: Reviewed Preferences * Full Code Date Activated Date Inactivated Comments 07/25/2021 7:08 AM 07/25/2021 11:18 AM Question Answer Comments Code Status Discussion: Not Discussed * Full Code Date Activated Date Inactivated Comments 03/02/2020 6:01 AM 03/08/2020 7:58 PM Care Teams [employer] Driver Relationship Specialty [place] [address] [place] [address] PCP - General Family Practice 12/02/19 Ning Johns MD Adult Congenital Heart Disease Program Cardiology - Pediatric 09/25/19 Walter Martínez MD [address] [place] [address] Referring Provider Obstetrics and Gynecology 05/31/22 Eunice Mccarthy PA [address] [facility] [place] [address] Physician Work Force Advisor 07/02/[address] [place] [address] Account Development Manager 07/15/24
--- OUTSIDE RECORDS SUMMARY | 2025-09-05 11:50 | XMS_ITS | Encounter Summary ---
Author Organization [facility] Address [address] [place] [address] Care Team Providers Care Early Childhood Worker Name Role Phone Gayle Garnica MD Primary Care Provider Un available Justine Beach APRN SUPERVISOR ELECTRONICS INSPECTION Unavailable [phone] Shyann Edward MANAGER MARKETING Unavailable [phone] Justine Beach APRN SUPERVISOR ELECTRONICS INSPECTION Unavailable [phone] Justine Beach APRN SUPERVISOR ELECTRONICS INSPECTION Unavailable [phone] Luz Marina Reynolds MD Primary Care Provider [phone] Encounter Details Date Type Department Care Team (Late st Contact Info) Description 02/24/2016 [facility] Medical Advice [address] [id number] Chichi Prieto MA Social History Tobacco Use Types Packs/Day Years Used Date Smoking Tobacco: Never Smokeless Tobacco: Never Alcohol Use Standard Drinks/Week Comments Yes 0 (1 standard drink = 0.6 oz pur e alcohol) occasional use Comments No Sex and Gender Information Value Date Recorded Sex Assigned at Female 11/25/2019 10:27 AM BED LABORER Legal Sex Female 4:04 AM BED LABORER Gender Identity Female 11/25/2019 10:27 AM BED LABORER Sexual Orientation Straight 11/25/2019 10 :27 AM BED LABORER documented as of this encounter Plan of Treatment Not on file documented as of this encounter Visit Diagnoses Not on filedocumented in this encounter Care Teams Early Childhood Worker Relationship Specialty Start Date End Date Gayle Garnica MD PCP - General Internal Medicine 11/24/12 12/08/24 Justine Beach APRN SUPERVISOR ELECTRONICS INSPECTION [address] [place] [address] PCP - Assigned PCP 12/19/15 08/17/18 Shyann Edward, MANAGER MARKETING [address] [place] [address] PCP - Assigned PCP 08/18/18 09/28/18 Justine Beach APRN SUPERVISOR ELECTRONICS INSPECTION [address] [place] [address] PCP - Assigned PCP 09/29/18 12/03/18 [place] [address] [place] [address] PCP - General Family Medicine 01/23/25 Justine Beach APRN SUPERVISOR ELECTRONICS INSPECTION [address] [place] [address] Assigned PCP 09/29/18 09/24/21 documented as of this encounter
--- OUTSIDE RECORDS SUMMARY | 2025-09-05 11:50 | XMS_ITS | Clinical Summary ---
Author Organization [place] Address [address] [facility] [place] [address] Care Team Providers Care Senior Clinical Data Manager Name Role Phone Luz Marina Reynolds MD Primary Care Provider Allergies Active Allergy Reactions Criticality Noted Date Comments Sulfa Antibiotics Rash Low 11/20/2012 Was also on zithromax Azithromycin Dihydrate Rash Low 11/20/2012 Also on sulfa; suspect the sulfa is the most likely culprit Medications paragard intrauterine copper device 1 each by Intrauterine route once for 1 dose 8 Active Active Problems Problem Noted Date Diagnosed Date Atypical squamous cells lakisha ot exclude high grade squamous intraepithelial lesion on cytologic smear of cervix (ASC-H) 07/17/2016 Overview (10/17/2018): 07/17/16 ASC-H. 08/29/16 [place]= BALTAZAR 1. 1 yr Dx pap due 08/201708/16/17 NIL, Neg HPV. Plan 1 yr co-test 09/06/18 Patient is lost to pap tracking follow-up. 09/23/18 NIL pap, neg HPV. Plan: 3 yr co-test Cellulitis of hand excluding fingers 06/08/2013 Tetralogy of Fallot s/p repair 11/11/2012 Overview (11/11/2012): has had 4 surgeries; last one 2000 CARDIOVASCULAR SCREENING; LDL GOAL LESS THAN 160 11/11/2012 Resolved Problems Problem Noted Date Diagnosed Date Resolved Date Cervicalgia 11/14/2006 12/19/2006 Pain in thoracic spine 11/14/200612/19 Immunizations Immunization Administration Dates Next Due Influenza (IIV3) PF 07/02/2014,08/01/2007 Influenza Vaccine >6 months,quad, PF 08/25/2019, 08/16/2017 Influenza vaccine ages 6-35 months 07/01/2015 TD,PF 7+ (Tenivac) 08/25/2019 TDAP (Adacel,Boostrix) 11/30/2007 Tdap (Adult) Unspecified Formulation 11/30/2007 Family History Medical History Relation Comments Lipids Mother Relation Status Comments Father Alive Mother Alive Social History Tobacco Use Types Packs/Day Years Used Date Smoking Tobacco: Never Smokeless Tobacco: Never Alcohol Use Standard Drinks/Week Comments Yes 0 (1 standard drink = 0.6 oz pur e alcohol) occasional use PHQ-2 Answer Date Recorded PHQ-2 Score 0 10/08/2018 Adolescent Education Answer Date Record ed Getting School Help Needed Not on file 07/08 Comments No Sex and Gender Information Value Date Recorded Sex Assigned at Female 11/25/2019 10:27 AM HOPPER FEEDER Legal Sex Female 4:04 AM HOPPER FEEDER Gender Identity Female 11/25/2019 10:27 AM HOPPER FEEDER Sexual Orientation Straight 11/25/2019 10 :27 AM HOPPER FEEDER Last Filed Vital Signs Vital Sign Reading Time Taken Comments Blood Pressure 118/86 09/23/2018 9:43 AM HOPPER FEEDER Pulse 76 09/23/2018 9:43 AM HOPPER FEEDER Temperature 37.4 C (99.3 F) 09/23/2018 9:43 AM HOPPER FEEDER Respiratory Rate 16 09/23/2018 9:43 AM HOPPER FEEDER Oxygen Saturation 98% 09/23/2018 9:43 AM HOPPER FEEDER Inhaled Oxygen Concentration - - Weight 106.2 kg (234 lb 1.6 oz) 09/23/2018 9:43 AM HOPPER FEEDER Height 158.8 cm (5' 2.5) 09/20/2018 10 :31 AM HOPPER FEEDER Body Mass Index 42.14 09/20/2018 10:31 AM HOPPER FEEDER Plan of Treatment Health Maintenance Due Date Last Done Comments ADVANCE CARE PLANNING 1985 ANNUAL REVIEW OF HM ORDERS 1985 MAMMO SCREENING 1985 HEPATITIS B VACCINE (1 of 3 - 19+ 3-dose series) 2004 DIABETES SCREENING 03/10/2023 03/10/2020, 0 03/08/2020, 05/30/2018, Additional history exists HPV TEST 09/22/2024 09/22/2021, 09/01, 08/16/2017 PAP 09/22/2024 09/22/2021, 09/01, 09/23/2018, Additional history exists PHQ-2 (once per calendar year) 2024 08/16/2017, 12/14/2015 COVID-19 VACCINE ( season) 2025 03/08/2023, 10/20/2021, 09/22/2021 INFLUENZA VACCINE (#1) 2025 , 08/25/2019, 08/16/2017, Additional history exists YEARLY PREVENTIVE VISIT 06/05/2025 06/05/20, 03/08/2023, 09/22/2021, Additional history exists LIPID 2025 05/30/2018 DTAP/TDAP/TD VACCINE (3 - Td or Tdap) 08/25/2029 08/25/2019, 11/30/2007, 11/30/2007 ZOSTER VACCINE (1 of 2) 2035 HEPATITIS C SCREENING Completed 05/11/2022, 020 HIV SCREENING Completed 03/08/2023, 03/02/2020 HPV VACCINE (No Doses Required) Completed MENINGITIS VACCINE Aged Out No longer eligible based on patient's age to complete this topic PNEUMOCOCCAL VACCINE: PEDIATRICS (0 to 5 YEARS) AND AT-RISK PATIENTS (6 to 49 YEARS) Aged Out No longer eligible based on patient's age to complete this topic Procedures Procedure Name Priority Date/Time Associated Diagnosis Comments GLUCOSE Routine 03/10/2020 PAP IMAGED THIN LAYER SCREEN Routine 09/23/2018 10:52 AM HOPPER FEEDER History of abnormal cervical Pap smear HPV HIGH RISK TYPES DNA CERVICAL Routine 09/23/2018 10:00 AM HOPPER FEEDER History of abnormal cervical Pap smear LIPID REFLEX TO DIRECT LDL PANEL Routine 05/30/2018 8:00 AM CDT Encounter for routine adult health examination without abnormal findings from Last 3 Months or Most Recently Relevant to Health Maintenance Results * Glucose (03/10/2020) Glucose 78 65 - 100 mg/dL [facility] Blood specimen (specimen) 03/10/2020 Narrative [facility] - 03/10/2020 See Care Everywhere-[facility] us Provider Outside LAB - BLOOD ORDERABLES Final Re sult [facility] [address] [place] [address], [facility] * Pap imaged thin layer screen with HPV - recommended age 30 - 65 years (select HPV order below) (09/23/2018 10:52 AM HOPPER FEEDER) PAP TJ Webster Report Patient Name: MARIE MICHAEL MR#: [id number] Specimen #: [id number] Collected: 09/23/2018 Received: 09/25/2018 Reported: 09/26/2018 08:38 Ordering Phy(s): JUSTINE BEACH For improved result formatting, select 'View Enhanced Report Format' under Linked Documents section. SPECIMEN/STAIN PROCESS: Pap imaged thin layer prep screening (Surepath, FocalPoint with guided screening) Pap-Cyto x 1, HPV ordered x 1 SOURCE: Cervical, endocervical Pap imaged thin layer prep screening (Surepath, FocalPoint with guided screening) SPECIMEN ADEQUACY: Satisfactory for evaluation. -Transformation zone component present. CYTOLOGIC INTERPRETATION: Negative for intraepithelial lesion or malignancy Electronically signed out by: MICHAEL Vanegas (ASCP) Processed and screened at [facility], [facility] CLINICAL HISTORY: LMP: 2018 A previous normal pap Date of Last Pap: 08/16/2017, Papanicolaou Test Limitations: Cervical cytology is a screening test with limited sensitivity; regular screening is critical for cancer prevention; Pap tests are primarily effective for the diagnosis/preventi on of squamous cell carcinoma, not adenocarcinomas or other cancers. TESTING LAB LOCATION: [facility] [address] [id number] COLLECTION SITE: Client: [facility] Location: FP (R) [facility] Cytologic material (specimen) 09/23/2018 10:52 AM HOPPER FEEDER 09/25/2018 8:29 AM HOPPER FEEDER us Justine Beach APRN [facility] [place] Final Result [facility] * HPV High Risk Types DNA Cervical (09/23/2018 10:00 AM HOPPER FEEDER) HPV Source SurePath 09/23/2018 10:52 AM HOPPER FEEDER [facility] HPV 16 DNA Negative NEG^Nega tive 09/30/2018 7:00 AM HOPPER FEEDER [facility] HPV 18 DNA Negative NEG^Nega tive 09/30/2018 7:00 AM HOPPER FEEDER [facility] Other HR HPV Negative NEG^Nega tive 09/30/2018 7:00 AM HOPPER FEEDER [facility] Final Diagnosis This patient's sample is negative for HPV DNA. 09/30/2018 7:00 AM HOPPER FEEDER [facility] Comment: This test was developed and its performance characteristics determined by the [facility], [facility]. It has not been cleared or approved by the FDA. The laboratory is regulated under CLIA as qualified to perform high-complexity testing. This test is used for clinical purposes. It should not be regarded as investigational or for research. (Note) METHODOLOGY: The Yasmin anne 4800 system uses automated extraction, simultaneous amplification of HPV (L1 region) and beta-globin, followed by real time detection of fluorescent labeled HPV and beta globin using specific oligonucleotide probes . The test specifically identifies types HPV 16 DNA and HPV 18 DNA while concurrently detecting the rest of the high risk types (31, 33, 35, 39, 45, 51, 52, 56, 58, 59, 66 or 68). COMMENTS: This test is not intended for use as a screening device for women under age 30 with normal cervical cytology. Results should be correlated with cytologic and histologic findings. Close clinical followup is recommended. Specimen Description Cervical Cells 09/23/2018 10:52 AM HOPPER FEEDER [facility] Comment:[id number] Cervical Cells CERVIX UTERI STRUCTURE / Unknown 09/23/2018 10:00 AM HOPPER FEEDER 09/23/2018 10:55 AM HOPPER FEEDER Justine Beach APRN [facility] - BLOOD ORDERABLES Final Result [facility] [address] [place] [address] [address] * Lipid panel reflex to direct LDL Fasting (05/30/2018 8:00 AM CDT) Cholesterol 153 <200 mg/dL 05/30/2018 8:[address] [facility] Triglycerides 52 <150 mg/dL 05/30/2018 8:[address] [facility] Comment:Fasting specimen HDL Cholesterol 51 >49 mg/dL 8 8:[address] [facility] LDL Cholesterol Calculated 92 <100 mg/dL 05/30/2018 8:[address] [facility] Comment:Desirable: <100 mg/d l Non HDL Cholesterol 102 <130 mg/dL 05/30/2018 8:[address] [facility] Blood specimen (specimen) 05/30/2018 8:00 AM CDT 05/30/2018 8:02 AM CDT Justine Beach APRN [facility] - BLOOD ORDERABLES Final Result [facility] [address] [place] [address] from Last 3 Months or Most Recently Relevant to Health Maintenance Insurance [employer] Advance Directives For more information, please contact: [phone] * Full Code (Latest Code Status on File) Date Activated Date Inactivated Comments 06/08/2013 2:09 PM 06/09/2013 6:55 PM Care Teams Senior Clinical Data Manager Relationship Specialty Start [place] [id number] [place] [address] PCP - General Family Medicine 01/23/25
[2025-09-05] MEDS: IBUPROFEN 400 MG TABLET 800 MG PO (12:31)
== END 2025-09-05 12:54 | disposition home or self-care (01) ==
PROVIDERS: Emergency Provider Student in an Organized Health Care Education/Training Program; PCP Family Medicine
DX: M25.562 Pain in left knee (principal); V43.52XA Car driver injured in collision with other type car in traffic accident, initial encounter
CPT/HCPCS: 73562; 99283; A9270